=== PATIENT | male | born 1950 | race Asian ===

== ENCOUNTER 2018-02-06 01:43 | Emergency (ER) | payer MEDICARE, OTHER ==
[2018-02-06] MEDS ORDERED: LORazepam 2MG/ML-1ML VIAL IV ONE ×2 (02:00→03:00)
[2018-02-06] MEDS ORDERED: SODIUM CHLORIDE 0.9% 1,000 ML IV ONE ×3 (02:00→03:15)
[2018-02-06 02:05] LABS: Basophils # (auto) 0.1 uL; Eosinophils # (auto) 0 uL; Hematocrit 26.6 % (41.0-53.0); Mean Corpuscular Hemoglobin 27.1 pg (28.0-32.0); Nucleated Red Blood Cells % 0.1 %; Red Blood Cells 2.97 10^6/uL (4.5-5.90); White Blood Cell 14.9 10^3/uL (4.4-10.8)
[2018-02-06 02:08] LABS: Basophils % (auto) 0.9 % (0.0-2.0); Lymphocytes # (auto) 5.6 uL; Lymphocytes % (auto) 37.2 % (10.0-50.0); Mean Corpuscular Hgb Conc. 30.2 g/dL (32.0-36.0); Mean Corpuscular Volume 89.6 fL (80.0-100.0); Monocytes # (auto) 0.5 uL; Monocytes % (auto) 3.1 % (0.0-12.0); Neutrophils # (auto) 8.8 uL; Neutrophils % (auto) 58.8 % (37.0-80.0); Platelet Count (auto) 193 10^3/uL (140-450); Red Cell Distribution Width 19.6 % (11.8-14.3)
[2018-02-06] MEDS ORDERED: LEVETIRACETAM INJ 1,000 MG in D5W 5% 100 ML IV ONE ×2 (02:15→02:30)
[2018-02-06 02:24] LABS: Albumin 1.8 g/dL (3.4-5.0); BUN/Creatinine Ratio 10.4; Calcium 6.9 mg/dL (8.5-10.1); Potassium 3.6 mmol/L (3.5-5.1)
[2018-02-06 02:26] LABS: Bilirubin, Total 0.8 mg/dL (0.2-1.0); Total Protein 7.1 g/dL (6.4-8.2)
[2018-02-06] MEDS ORDERED: DEXAMETHASONE INJECTION 10 MG in D5W 5% 50 ML IV ONE (02:30)
[2018-02-06] MEDS ORDERED: LEVETIRACETAM 500 MG/5ML INJ IV ONE (02:36)
[2018-02-06] MEDS ORDERED: DEXAMETHASONE SOD PHOS 10MG/1ML VIAL INJ ONE (02:53)
[2018-02-06 04:34] VITALS: BP 115/67
[2018-02-06] MEDS ORDERED: DEXAMETHASONE INJECTION 10 MG in D5W 5% 50 ML IV SCH (10:00)
== END 2018-02-06 05:51 | disposition home or self-care (01) ==
LOC: ER 01:43
DX: G40.909 Epilepsy, unspecified, not intractable, without status epilepticus (principal); G93.9 Disorder of brain, unspecified; Z66 Do not resuscitate
CPT/HCPCS: 36415; 80053; 85025; 96365; 96367; 96375; 96376; 99285; J1100; J1953; J2060; 96368; J7060

== ENCOUNTER 2018-02-07 04:30 | Emergency (ER) | payer MEDICARE ==
[~2018-02-07] VITALS: Ht 162.6 cm; Wt 59.0 kg
[2018-02-07] MEDS ORDERED: SODIUM CHLORIDE 0.9% 1,000 ML IVB ONE (04:53)
[2018-02-07] MEDS ORDERED: LORazepam 2MG/ML-1ML VIAL IV ONE (05:00)
[2018-02-07] MEDS ORDERED: LEVETIRACETAM INJ 1,000 MG in D5W 5% 100 ML IV ONE (05:00)
[2018-02-07] MEDS ORDERED: SODIUM CHLORIDE 0.9% 1,000 ML IV ONE (05:15)
[2018-02-07 05:37] LABS: Basophils # (auto) 0 uL; Basophils % (auto) 0.1 % (0.0-2.0); Eosinophils # (auto) 0 uL; Hematocrit 27.7 % (41.0-53.0); Hemoglobin 8.7 g/dL (13.5-17.5); Lymphocytes # (auto) 1.9 uL; Lymphocytes % (auto) 11.5 % (10.0-50.0); Mean Corpuscular Hemoglobin 28.3 pg (28.0-32.0); Mean Corpuscular Hgb Conc. 31.3 g/dL (32.0-36.0); Mean Corpuscular Volume 90.5 fL (80.0-100.0); Monocytes # (auto) 0.5 uL; Monocytes % (auto) 3.2 % (0.0-12.0); Neutrophils # (auto) 14.2 uL; Neutrophils % (auto) 85.2 % (37.0-80.0); Nucleated Red Blood Cells % 0.1 %; Platelet Count (auto) 240 10^3/uL (140-450); Red Blood Cells 3.07 10^6/uL (4.5-5.90); White Blood Cell 16.7 10^3/uL (4.4-10.8)
[2018-02-07 05:47] LABS: Red Cell Distribution Width 20.9 % (11.8-14.3)
[2018-02-07 05:48] LABS: INR 1.1 (0.9-1.15); Partial Thromboplastin Time 28.9 sec (23.78-33.04); Prothrombin Time 11.7 sec (9.27-12.13)
[2018-02-07 05:52] LABS: Alanine Aminotransferase 22 U/L (16-61); Albumin 1.8 g/dL (3.4-5.0); Anion Gap 22 (5-15); Aspartate Aminotransferase 35 U/L (15-37); BUN/Creatinine Ratio 12.7; Blood Alcohol < 3.0 mg/dL (0-5); Blood Urea Nitrogen 57 mg/dL (7-18); Calcium 7.5 mg/dL (8.5-10.1); Carbon Dioxide 11 mmol/L (21-32); Chloride 125 mmol/L (98-107); GFR African American 17 mL/min; GFR Non-African American 14 mL/min; Glucose 82 mg/dL (74-106); Sodium 158 mmol/L (136-145)
[2018-02-07 05:58] LABS: Alkaline Phosphatase 135 U/L (45-117); Bilirubin, Total 0.7 mg/dL (0.2-1.0); Total Protein 7.2 g/dL (6.4-8.2)
[2018-02-07] MEDS ORDERED: LEVETIRACETAM 500 MG/5ML INJ IV ONE (06:17)
[2018-02-07] MEDS ORDERED: DEXAMETHASONE SOD PHOS 10MG/1ML VIAL INJ IV ONE (06:30)
[2018-02-07 06:33] LABS: Lactic Acid w/Reflex 5.8 mmol/L (0.4-2.0)
[2018-02-07] MEDS ORDERED: PIPERACILLIN-TAZOB 3.375GM 100 ML IV ONE (06:45)
[2018-02-07] MEDS ORDERED: VANCOMYCIN 1GM/250ML 250 ML IV ONE (06:45)
[2018-02-07 12:19] VITALS: BP 96/56
== END 2018-02-07 13:21 | disposition home or self-care (01) ==
LOC: ER 04:30
DX: D49.6 Neoplasm of unspecified behavior of brain (principal); R41.82 Altered mental status, unspecified; J18.9 Pneumonia, unspecified organism; E86.0 Dehydration
CPT/HCPCS: 36415; 51702; 70450; 71045; 80053; 80320; 82962; 83605; 83735; 84484; 85025; 85610; 85730; 87040; 93005; 94761; 96361; 96365; 96366; 96367; 96375; 99285; J1100; J1953; J2060; J2543; J3370; J7030; J7060